=== PATIENT | female | born 1940 | race Hispanic/Latino ===

== ENCOUNTER 2017-04-28 08:06 | Day surgery (SDC) | payer MEDICARE, OTHER ==
[2017-04-26 10:13] VITALS: BMI 22.3
[2017-04-28] MEDS ORDERED: Propofol 10 mg/ml Inj (20 ML) ONE (09:53)
--- NOTE | 2017-04-28 09:55 | CARD ---
APPROVED REPORT EKG Measurement Heart [id number] CO 166P38 [id number] <Conclusion> Electronic atrial pacemaker Left ventricular hypertrophy with repolarization abnormality Abnormal ECG
[2017-04-28] MEDS ORDERED: Sodium Chloride 0.9% 1,000 ML IV SCH (10:45)
[2017-04-28 11:17] VITALS: BP 143/86; PULSE 71; RESP 16; TEMP 97.8; O2SAT 99
== END 2017-04-28 12:06 | disposition home or self-care (01) ==
LOC: ENDO 08:06
PROVIDERS: ATTEND Internal Medicine Gastroenterology
DX: K29.50 Unspecified chronic gastritis without bleeding (principal); B96.81 Helicobacter pylori [H. pylori] as the cause of diseases classified elsewhere; D50.9 Iron deficiency anemia, unspecified; I25.10 Atherosclerotic heart disease of native coronary artery without angina pectoris; I10 Essential (primary) hypertension
CPT/HCPCS: 43239; 88305; 88342; 93005; J2001; J2704; J3010; J7040 ×2

== ENCOUNTER 2018-11-16 11:12 | Day surgery (SDC) | payer MEDICARE, OTHER ==
[2017-12-02 01:53] VITALS: BMI 22.8
[2018-11-16] MEDS ORDERED: Propofol 10 mg/ml Inj (20 ML) ONE (14:16)
[2018-11-16] MEDS ORDERED: Etomidate 20 mg/10ml Inj IV ONE (14:17)
[2018-11-16] MEDS ORDERED: Sodium Chloride 0.9% 1,000 ML IV SCH (15:00)
[2018-11-16 15:29] VITALS: BP 149/77; PULSE 74; RESP 18; TEMP 98.2; O2SAT 97
== END 2018-11-16 16:30 | disposition home or self-care (01) ==
LOC: ENDO 11:12
PROVIDERS: ATTEND Internal Medicine Gastroenterology
DX: R19.4 Change in bowel habit (principal); K57.30 Diverticulosis of large intestine without perforation or abscess without bleeding; K64.8 Other hemorrhoids; Z80.0 Family history of malignant neoplasm of digestive organs
CPT/HCPCS: 45378; J2001; J2704; J7030